=== PATIENT | female | born 1990 | race Caucasian/White ===

== ENCOUNTER → 2016-11-16 | Outpatient (CLI) | payer OTHER ==
[~2016-11-16] MED LIST: BCPILLS PO; COLE625T PO; MISC4CAP PO; MULT-506 PO; OXYM0.0592 NAE; SERT25TA PO; TRAZ50TA35 PO
[2016-11-16 17:43] LABS: BASO % 0.3 %; BASO ABS # 0.03 K/uL (0-0.2); COMPLETE YES; HEMATOCRIT 36.7 % (37-47); IG% 0.2 %; LYMPH % 15.5 %; LYMPH ABS # 1.79 K/uL (1.2-3.4); MEAN CELL VOLUME 86.6 fL (80-100); MEAN CORPUSCULAR HEMOGLOBIN 30.2 pg (25-34); MEAN CORPUSCULAR HGB CONC 34.9 g/dl (32-36); MEAN PLATELET VOLUME 9.2 fL (7.4-10.4); MONO % 9.7 %; NEUT % 73.3 %; PLATELET COUNT 328 K/uL (130-400); RED BLOOD COUNT 4.24 M/uL (4.2-5.4); WHITE BLOOD COUNT 11.55 K/uL (4.8-10.8)
[2016-11-16 18:13] LABS: ALT/SGPT 15 U/L (12-78); AST/SGOT 10 U/L (15-37); BLOOD UREA NITROGEN 8 mg/dl (7-18); CALCIUM 8.6 mg/dl (8.5-10.1); CARBON DIOXIDE 25 mmol/L (21-32); CHLORIDE 105 mmol/L (98-107); CREATININE 0.58 mg/dl (0.60-1.20); GLUCOSE 75 mg/dl (70-99); POTASSIUM 3.8 mmol/L (3.5-5.1); SODIUM 138 mmol/L (136-145)
[2016-11-16 18:15] LABS: ALB/GLOB RATIO 0.9 (0.9-2); ALKALINE PHOSPHATASE 53 U/L (45-117); C-REACTIVE PROTEIN 6.38 mg/dl (0-0.29)
== END | disposition home or self-care (01) ==
LOC: C.LAB1850 17:19
PROVIDERS: ATTEND Internal Medicine
DX: K52.9 Noninfective gastroenteritis and colitis, unspecified (principal)

== ENCOUNTER → 2016-12-27 | Day surgery (SDC) | payer OTHER ==
[2016-12-17 11:06] VITALS: Ht 167.6 cm; Wt 54.5 kg
[~2016-12-27] VITALS: Ht 167.6 cm; Wt 54.5 kg
[~2016-12-27] MED LIST changes: +LIDOCAINE HCL 2% 2 ML VIAL (20MG/ML) ONE; +MIDAZOLAM HCL 1 MG/ML 2ML VIAL ONE; +PROPOFOL IV EMULSION 10 MG/ML 20 ML VIAL IV ONE; +SODIUM CHLORIDE 0.9% 500ML 500 ML IV ONE
--- NOTE | 2016-12-27 15:01 | Endo History and Physical ---
History & Physical Date of Service: Dec 27, 2016. Chief Complaint: Chronic diarrhea Referring Physician: Dr. Young History of Present Illness 26 yo CF who presents for colonoscopy secondary to chronic diarrhea. Past Surgical History Hx Cardiac Surgery: No Hx Internal Defibrillator: No Hx Pacemaker: No Hx Abdominal Surgery: No Hx of Implantable Prosthesis: No Hx Post-Op Nausea and Vomiting: No Hx Cancer Surgery: No Hx Thoracic Surgery: No Hx Orthopedic: No Hx Urinary Tract Surgery: No Family History Polyp Social History Smoking Status: Never Smoker Hx Substance Use: No Hx Alcohol Use: No Allergies Coded Allergies: NO KNOWN DRUG ALLERGIES (Verified Allergy, Unknown, ., 12/17/16) Current Medications Reported Home Medications Medications Dose Route/Sig Max Daily Dose Days Date Category Multivitamin (Multivitamins) Tab 1 Tab PO QAM 12/17/16 Reported Align (Probiotic Product) 4 Mg Cap 1 Cap PO QAM 12/17/16 Reported Nasal Lapaz (Oxymetazoline Hcl) 0.05 % Spr 1 Lapaz PAGE HS 12/17/16 Reported Zoloft (Sertraline HCl) 25 Mg Tab 25 Mg PO QAM 12/17/16 Reported Trazodone (Trazodone HCl) 50 Mg Tab 50 Mg PO BID 12/17/16 Reported Welchol (Colesevelam HCl) 625 Mg Tab 2 Tab PO BID 12/17/16 Reported Control Pills (Miscellaneous) Tab 1 Tab PO HS 12/17/16 Reported Vital Signs Weight (Kilograms): 54.55 Height (Feet): 5 Height (Inches): 6 Physical Exam General Appearance: WD/WN, no apparent distress Respiratory/Chest: Auscultation: breath sounds normal Cardiovascular: Heart Auscultation: RRR Abdomen: Bowel Sounds: normal Inspection & Palpation: soft, non-distended, no tenderness, guarding & rebound Assessment and Plan Assessment: 26 yo CF who presents for colonoscopy secondary to chronic diarrhea. Plan: Proceed with colonoscopy.
--- NOTE | 2016-12-27 16:22 | GI REPORT ---
Procedure Date: 12/27/2016 3:24 PM Procedure: Colonoscopy Indications: Chronic diarrhea Medicines: Monitored Anesthesia Care Complications: No immediate complications. Estimated Blood Loss: Estimated blood loss: none. Procedure: Pre-Anesthesia Assessment: - Prior to the procedure, a History and Physical was performed, and patient medications and allergies were reviewed. The patient's tolerance of previous anesthesia was also reviewed. The risks and benefits of the procedure and the sedation options and risks were discussed with the patient. All questions were answered, and informed consent was obtained. Prior Anticoagulants: The patient has taken no previous anticoagulant or antiplatelet agents. ASA Grade Assessment: I - A normal, healthy patient. After reviewing the risks and benefits, the patient was deemed in satisfactory condition to undergo the procedure. After I obtained informed consent, the scope was passed under direct vision. Throughout the procedure, the patient's blood pressure, pulse, and oxygen saturations were monitored continuously. The On-site loaner was introduced through the anus and advanced to the terminal ileum. The colonoscopy was performed without difficulty. The patient tolerated the procedure well. The quality of the bowel preparation was good. The terminal ileum, ileocecal valve, appendiceal orifice, and rectum were photographed. Findings: The terminal ileum appeared normal. Biopsies were taken with a cold forceps for histology. Several random biopsies were obtained with cold forceps for histology in the entire colon. Localized moderate inflammation characterized by erosions, scarring and shallow ulcerations was found at the anus and in the rectum. Biopsies were taken with a cold forceps for histology. Fluid aspiration for cytology was performed in the entire colon. The digital rectal exam findings include anal stricture and large skin tag. Impression: - The examined portion of the ileum was normal. Biopsied. - Localized moderate inflammation was found at the anus and in the rectum secondary to proctitis. Biopsied. - Several random biopsies were obtained in the entire colon. - Fluid aspiration was performed. - Anal stricture found on digital rectal exam. Recommendation: - Resume previous diet. - Use prednisone 40 mg PO once a day for 1 week. - Await pathology results. - Repeat colonoscopy for surveillance based on pathology results. - Return to GI office as previously scheduled. Martin Claros DO 12/27/2016 4:21:39 PM This report has been signed electronically. Note Initiated On: 12/27/2016 3:24 PM I attest to the content of the Intraoperative Record and orders documented therein, exceptions below
--- NOTE | 2016-12-27 16:29 | Anesthesiology Progress Note ---
Anesthesia Post Op Note Date & Time Dec 27, 2016 at 16:30 Vital Signs Pain Intensity: 0 Vital Signs Past 12 Hours Date Time Temp Pulse Resp B/P Pulse Ox O2 Delivery O2 Flow Rate FiO2 12/27/16 16:11 92 16 94/53 98 Room Air 12/27/16 15:09 36.8 100 18 114/67 98 Room Air Notes Mental Status: alert / awake / arousable, participated in evaluation Pt Amnestic to Procedure: Yes Nausea / Vomiting: adequately controlled Pain: adequately controlled Airway Patency, RR, SpO2: stable & adequate BP & HR: stable & adequate Hydration State: stable & adequate Anesthetic Complications: no major complications apparent
[2016-12-27 16:41] VITALS: BP 101/69; PULSE 89; O2SAT 99
--- NOTE | 2016-12-27 16:53 | Discharge Instructions ---
Endoscopy Patient Instructions Date / Procedure(s) Performed Dec 27, 2016. Colonoscopy Allergy Information Coded Allergies: NO KNOWN DRUG ALLERGIES (Verified Allergy, Unknown, ., 12/17/16) Discharge Date / Findings Dec 27, 2016. Terminal ileum biopsies Random colon biopsies Proctitis with moderate disease activity and Ano-rectal biopsies Stool studies collected Medication Instructions OK to resume all medications today as prescribed Reported Home Medications Medications Dose Route/Sig Max Daily Dose Days Date Category Multivitamin (Multivitamins) Tab 1 Tab PO QAM 12/17/16 Reported Align (Probiotic Product) 4 Mg Cap 1 Cap PO QAM 12/17/16 Reported Nasal Heth (Oxymetazoline Hcl) 0.05 % Spr 1 Heth PAGE HS 12/17/16 Reported Zoloft (Sertraline HCl) 25 Mg Tab 25 Mg PO QAM 12/17/16 Reported Trazodone (Trazodone HCl) 50 Mg Tab 50 Mg PO BID 12/17/16 Reported Welchol (Colesevelam HCl) 625 Mg Tab 2 Tab PO BID 12/17/16 Reported Control Pills (Miscellaneous) Tab 1 Tab PO HS 12/17/16 Reported Provider Instructions Activity Restrictions - No exercising or heavy lifting for 24 hours. - Do not drink alcohol the day of the procedure. - Do not drive a car or operate machinery until the day after the procedure. - Do not make any important decisions or sign important papers in 24 hours after the procedure. Following Day: - Return to full activity which may include returning to work/school. Diet Start your diet with liquids and light foods (jello, soup, juice, toast). Then eat your usual diet if not nauseated. Treatment For Common After Affects For mild abdominal pain, bloating, or excessive gas: - Rest - Eat lightly - Lie on right side Recommend IBD-7 panel now Follow-Up Information Follow-up with Kayla Young as scheduled Anesthesia Information What You Should Know You have had a procedure that required some medicine to reduce anxiety and discomfort. This treatment is called moderate sedation. After receiving the treatment, you may be sleepy, but you will be able to breathe on your own. The effects of the treatment may last for several hours. Follow these instructions along with Activity/Diet recommendations noted above: * Do NOT do anything where dizziness or clumsiness would be dangerous. * Rest quietly at home today, then you can be up and about tomorrow. * Have a responsible person stay with you the rest of today. * You may have had an I.V. today. If so, you may take the dressing off later today. Recommendations Call your doctor if: * Trouble breathing * Continuous vomiting for more than 24 hours * Temperature above 101 degrees * Severe abdominal pain or bloating * Pain not relieved by pain medicine ordered * There is increased drainage or redness from any incision * A large amount of rectal bleeding greater than 2-3 tablespoons. (If you had a polyp/s removed or have hemorrhoids, a small amount of blood - from the rectum is to be expected.) * You have any unanswered questions or concerns. IN THE EVENT OF A SERIOUS EMERGENCY, GO TO THE NEAREST EMERGENCY ROOM Your discharge instructions were prepared by provider Martin Claros. Patient Instructions Signature Page Azul Patterson Patient (or Guardian) Signature/Date: I have read and understand the instructions given to me by my caregivers. Caregiver/RN/Doctor Signature/Date: The above-named patient and/or guardian has received patient instructions on this date. + Original Patient Signature Page (only) stays with chart. Please make copy for patient.
== END | disposition home or self-care (01) ==
LOC: C.GI 14:49
PROVIDERS: ATTEND Internal Medicine
DX: K52.9 Noninfective gastroenteritis and colitis, unspecified (principal); K62.89 Other specified diseases of anus and rectum; K62.4 Stenosis of anus and rectum; Z79.3 Long term (current) use of hormonal contraceptives; Z68.1 Body mass index [BMI] 19.9 or less, adult; Z83.71 Family history of colonic polyps

== ENCOUNTER → 2017-01-07 | Outpatient (CLI) | payer OTHER ==
[~2017-01-07] MED LIST changes: -LIDOCAINE HCL 2% 2 ML VIAL (20MG/ML) ONE; -MIDAZOLAM HCL 1 MG/ML 2ML VIAL ONE; -PROPOFOL IV EMULSION 10 MG/ML 20 ML VIAL IV ONE; -SODIUM CHLORIDE 0.9% 500ML 500 ML IV ONE
== END | disposition home or self-care (01) ==
LOC: C.LAB 15:31
PROVIDERS: ATTEND Internal Medicine
DX: K62.89 Other specified diseases of anus and rectum (principal)

== ENCOUNTER → 2017-01-26 | Outpatient (CLI) | payer OTHER ==
[~2017-01-26] MED LIST changes: +GADAVIST IV PRN
--- NOTE | 2017-01-27 08:40 | DIAGNOSTIC IMAGING REPORT ---
MRI ENTEROGRAPHY OF THE ABDOMEN AND PELVIS WITH AND WITHOUT CONTRAST CLINICAL HISTORY: Crohn's disease. COMPARISON STUDY: No previous studies for comparison. TECHNIQUE: The patient ingested Volumen. Utilizing 1.5 Kelli magnet and dedicated coil, multiplanar, multi echo imaging of the abdomen and pelvis was performed pre and postcontrast administration. Post contrast imaging was performed utilizing dynamic enhancement. Injection of 5.5 cc of Gadavist IV was uneventful. 1 mg of glucagon was administered IM at 12:00 PM. FINDINGS: The caliber and wall thickness of the jejunum and ileum are normal. No bowel wall thickening is noted. There is no evidence for a bowel obstruction. There is no evidence of bowel wall hyperemia. No fistula or abscess is identified. The terminal ileum is partially obscured on this exam but is likely normal. There is no ascites. The liver, spleen, adrenal glands and kidneys are unremarkable. There is slight prominence of the right renal collecting system without hydronephrosis. Visualized skeletal structures are unremarkable. IMPRESSION: Normal MRI enterography. No bowel wall thickening, bowel obstruction, abscess or fistula. Electronically signed by: Yosvany Benavides M.D. 01/27/2017 8:39 AM Dictated Date/Time: 01/26/2017 1:08 PM
== END | disposition home or self-care (01) ==
LOC: C.MRI 10:36
PROVIDERS: ATTEND Registered Nurse
DX: K50.10 Crohn's disease of large intestine without complications (principal)

== ENCOUNTER → 2017-01-31 | Outpatient (CLI) | payer OTHER ==
[~2017-01-31] MED LIST changes: -GADAVIST IV PRN
[2017-01-31 17:23] LABS: BASO % 0.1 %; BASO ABS # 0.01 K/uL (0-0.2); COMPLETE YES; HEMATOCRIT 42.3 % (37-47); IG% 0.6 %; LYMPH ABS # 1.12 K/uL (1.2-3.4); MEAN CELL VOLUME 89.6 fL (80-100); MEAN CORPUSCULAR HEMOGLOBIN 29.7 pg (25-34); MEAN CORPUSCULAR HGB CONC 33.1 g/dl (32-36); MEAN PLATELET VOLUME 9.1 fL (7.4-10.4); MONO % 1.4 %; NEUT % 90.9 %; PLATELET COUNT 361 K/uL (130-400); RED BLOOD COUNT 4.72 M/uL (4.2-5.4); WHITE BLOOD COUNT 15.96 K/uL (4.8-10.8)
[2017-01-31 18:04] LABS: ALKALINE PHOSPHATASE 55 U/L (45-117); ALT/SGPT 20 U/L (12-78); AST/SGOT 7 U/L (15-37); BLOOD UREA NITROGEN 15 mg/dl (7-18); BUN/CREATININE RATIO 19.5 (10-20); CALCIUM 9.4 mg/dl (8.5-10.1); CARBON DIOXIDE 26 mmol/L (21-32); CHLORIDE 102 mmol/L (98-107); CREATININE 0.77 mg/dl (0.60-1.20); GLUCOSE 122 mg/dl (70-99); POTASSIUM 3.6 mmol/L (3.5-5.1); SODIUM 136 mmol/L (136-145)
[2017-01-31 18:06] LABS: C-REACTIVE PROTEIN 0.32 mg/dl (0-0.29)
[2017-01-31 18:35] LABS: HEPATITIS B AB NEG
[2017-02-02 12:26] LABS: QUANTIF TB AG-NIL <0.00 IU/ML; QUANTIFERON NIL 0.14 IU/ML
== END | disposition home or self-care (01) ==
LOC: C.LAB1850 16:17
PROVIDERS: ATTEND Registered Nurse
DX: K50.10 Crohn's disease of large intestine without complications (principal)

== ENCOUNTER → 2017-10-20 | Outpatient (CLI) | payer OTHER ==
[2017-10-20 16:38] LABS: BASO % 0.2 %; BASO ABS # 0.03 K/uL (0-0.2); EOS % 1.2 %; EOS ABS # 0.15 K/uL (0-0.5); HEMATOCRIT 41.3 % (37-47); HEMOGLOBIN 14.8 g/dL (12.0-16.0); IG# 0.02 K/uL (0.00-0.02); LYMPH % 19.4 %; LYMPH ABS # 2.42 K/uL (1.2-3.4); MEAN CORPUSCULAR HEMOGLOBIN 32.2 pg (25-34); MEAN CORPUSCULAR HGB CONC 35.8 g/dl (32-36); MEAN PLATELET VOLUME 9.4 fL (7.4-10.4); MONO % 5.6 %; NEUT % 73.4 %; NEUT ABS # 9.18 K/uL (1.4-6.5); PLATELET COUNT 342 K/uL (130-400); RED CELL DISTRIBUTION WIDTH SD 39.2 fL (36.4-46.3)
[2017-10-20 17:00] LABS: ALBUMIN 3.8 gm/dl (3.4-5.0); ALT/SGPT 17 U/L (12-78); AST/SGOT 9 U/L (15-37); BLOOD UREA NITROGEN 15 mg/dl (7-18); CALCIUM 9.3 mg/dl (8.5-10.1); CARBON DIOXIDE 24 mmol/L (21-32); CREATININE 0.56 mg/dl (0.60-1.20); GLUCOSE 77 mg/dl (70-99); POTASSIUM 3.5 mmol/L (3.5-5.1); SODIUM 136 mmol/L (136-145)
[2017-10-20 17:02] LABS: ALKALINE PHOSPHATASE 43 U/L (45-117); TOTAL PROTEIN 8.3 gm/dl (6.4-8.2)
== END | disposition home or self-care (01) ==
LOC: C.LAB1850 15:42
PROVIDERS: ATTEND Internal Medicine
DX: K50.10 Crohn's disease of large intestine without complications (principal)

== ENCOUNTER → 2018-05-05 | Outpatient (CLI) | payer OTHER ==
[2018-05-05 16:41] LABS: BASO % 0.4 %; BASO ABS # 0.04 K/uL (0-0.2); EOS % 1.5 %; EOS ABS # 0.16 K/uL (0-0.5); HEMATOCRIT 38.6 % (37-47); HEMOGLOBIN 13.3 g/dL (12.0-16.0); IG# 0.03 K/uL (0.00-0.02); LYMPH % 21.2 %; LYMPH ABS # 2.26 K/uL (1.2-3.4); MEAN CELL VOLUME 90.2 fL (80-100); MEAN CORPUSCULAR HEMOGLOBIN 31.1 pg (25-34); MEAN CORPUSCULAR HGB CONC 34.5 g/dl (32-36); MEAN PLATELET VOLUME 9.9 fL (7.4-10.4); MONO % 6.6 %; NEUT ABS # 7.49 K/uL (1.4-6.5); PLATELET COUNT 310 K/uL (130-400); RED CELL DISTRIBUTION WIDTH CV 12.2 % (11.5-14.5); RED CELL DISTRIBUTION WIDTH SD 39.8 fL (36.4-46.3); WHITE BLOOD COUNT 10.68 K/uL (4.8-10.8)
[2018-05-05 17:05] LABS: ALBUMIN 3.3 gm/dl (3.4-5.0); ALKALINE PHOSPHATASE 46 U/L (45-117); ALT/SGPT 16 U/L (12-78); AST/SGOT 10 U/L (15-37); BLOOD UREA NITROGEN 10 mg/dl (7-18); CALCIUM 8.3 mg/dl (8.5-10.1); CARBON DIOXIDE 21 mmol/L (21-32); CREATININE 0.69 mg/dl (0.60-1.20); GLUCOSE 100 mg/dl (70-99); POTASSIUM 3.5 mmol/L (3.5-5.1); SODIUM 137 mmol/L (136-145)
== END | disposition home or self-care (01) ==
LOC: C.LABPBG 15:27
PROVIDERS: ATTEND Internal Medicine
DX: R19.7 Diarrhea, unspecified (principal)

== ENCOUNTER → 2018-05-06 | Outpatient (CLI) | payer OTHER | END | disposition home or self-care (01) | LOC: C.LAB 18:46 | PROVIDERS: ATTEND Internal Medicine | DX: R19.7 Diarrhea, unspecified (principal) ==

== ENCOUNTER → 2018-05-19 | Outpatient (CLI) | payer OTHER ==
[~2018-05-19] MED LIST changes: +ATEN-173 PO; +DOXY100C76 PO; +FLUT0.15 INTNAS; +RMCI INJ
--- NOTE | 2018-05-19 18:49 | DIAGNOSTIC IMAGING REPORT ---
SI JOINTS 3 OR MORE VIEWS CLINICAL HISTORY: Crohn's disease. Back spasms. COMPARISON STUDY: No previous studies for comparison. FINDINGS: Sacroiliac joints are intact without evidence for ankylosis. No definite erosions are identified. No fracture or osseous lesion is noted. IMPRESSION: No convincing radiographic evidence of sacroiliitis. Electronically signed by: Yosvany Benavides M.D. 05/19/2018 6:48 PM Dictated Date/Time: 05/19/2018 6:46 PM
== END | disposition home or self-care (01) ==
LOC: C.RAD 18:25
PROVIDERS: ATTEND Internal Medicine
DX: K50.10 Crohn's disease of large intestine without complications (principal)

== ENCOUNTER → 2018-05-23 | Day surgery (SDC) | payer OTHER ==
[~2018-05-23] VITALS: Ht 167.6 cm; Wt 56.4 kg
[~2018-05-23] MED LIST changes: +LIDOCAINE HCL 2% 2 ML VIAL (20MG/ML) ONE; +MIDAZOLAM HCL 1 MG/ML 2ML VIAL ONE; +PROPOFOL IV EMULSION 10 MG/ML 20 ML VIAL ONE; +SODIUM CHLORIDE 0.9% 500ML 500 ML IV ONE
[2018-05-23 09:50] VITALS: Ht 167.6 cm; Wt 56.4 kg
--- NOTE | 2018-05-23 10:03 | Endo History and Physical ---
History & Physical Date of Service: May 23, 2018. Chief Complaint: CROHNS Referring Physician: DR. CARTAGENA History of Present Illness 27 yo CF who presents for colonoscopy secondary to Crohn's Disease. Past Surgical History Hx Cardiac Surgery: No Hx Internal Defibrillator: No Hx Pacemaker: No Hx Abdominal Surgery: No Hx of Implantable Prosthesis: No Hx Post-Op Nausea and Vomiting: No Hx Cancer Surgery: No Hx Thoracic Surgery: No Hx Orthopedic: No Hx Urinary Tract Surgery: No Family History Polyp Social History Smoking Status: Never Smoker Hx Substance Use: No Hx Alcohol Use: Yes (OCC SOCIAL) Allergies Coded Allergies: NO KNOWN DRUG ALLERGIES (Verified Allergy, Unknown, NONE, 05/23/18) Current Medications Reported Home Medications Medications Dose Route/Sig Max Daily Dose Days Date Category Dose Instructions Tenormin (Atenolol) 25 Mg Tab 25 Mg PO PRN 05/19/18 Reported Remicade (Infliximab) 100 Mg/10 Ml Inj 1 Dose INJ Q5-6WEEKS 05/19/18 Reported LAST DOSE 05/01/18 Monodox (Doxycycline Monohydrate) 100 Mg Cap 100 Mg PO PRN 05/19/18 Reported Flonase Allergy Relief (Fluticasone Propionate (Nasal)) 50 Mcg/Act Spr 2 Sprays INTNAS HS 05/19/18 Reported Multivitamin (Multivitamins) Tab 1 Tab PO QAM 12/17/16 Reported Zoloft (Sertraline HCl) 25 Mg Tab 25 Mg PO QAM 12/17/16 Reported Trazodone (Trazodone HCl) 50 Mg Tab 50 Mg PO QPM 12/17/16 Reported Control Pills (Miscellaneous) Tab 1 Tab PO HS 12/17/16 Reported Vital Signs Weight (Kilograms): 56.36 Height (Feet): 5 Height (Inches): 6 Physical Exam General Appearance: WD/WN, no apparent distress Respiratory/Chest: Auscultation: breath sounds normal Cardiovascular: Heart Auscultation: RRR Abdomen: Bowel Sounds: normal Inspection & Palpation: soft, non-distended, no tenderness, guarding & rebound Assessment and Plan Assessment: 27 yo CF who presents for colonoscopy secondary to Crohn's Disease. Plan: Proceed with colonoscopy.
--- NOTE | 2018-05-23 10:38 | Discharge Instructions ---
Endoscopy Patient Instructions Date / Procedure(s) Performed May 23, 2018. Colonoscopy Allergy Information Coded Allergies: NO KNOWN DRUG ALLERGIES (Verified Allergy, Unknown, NONE, 05/23/18) Discharge Date / Findings May 23, 2018. Biopsies of the terminal ileum Random biopsies of the colon Stool aspirate collected Mild disease activity in the rectum Medication Instructions OK to resume all medications today as prescribed Reported Home Medications Medications Dose Route/Sig Max Daily Dose Days Date Category Dose Instructions Tenormin (Atenolol) 25 Mg Tab 25 Mg PO PRN 05/19/18 Reported Remicade (Infliximab) 100 Mg/10 Ml Inj 1 Dose INJ Q5-6WEEKS 05/19/18 Reported LAST DOSE 05/01/18 Monodox (Doxycycline Monohydrate) 100 Mg Cap 100 Mg PO PRN 05/19/18 Reported Flonase Allergy Relief (Fluticasone Propionate (Nasal)) 50 Mcg/Act Spr 2 Sprays INTNAS HS 05/19/18 Reported Multivitamin (Multivitamins) Tab 1 Tab PO QAM 12/17/16 Reported Zoloft (Sertraline HCl) 25 Mg Tab 25 Mg PO QAM 12/17/16 Reported Trazodone (Trazodone HCl) 50 Mg Tab 50 Mg PO QPM 12/17/16 Reported Control Pills (Miscellaneous) Tab 1 Tab PO HS 12/17/16 Reported Provider Instructions Activity Restrictions - No exercising or heavy lifting for 24 hours. - Do not drink alcohol the day of the procedure. - Do not drive a car or operate machinery until the day after the procedure. - Do not make any important decisions or sign important papers in 24 hours after the procedure. Following Day: - Return to full activity which may include returning to work/school. Diet Start your diet with liquids and light foods (jello, soup, juice, toast). Then eat your usual diet if not nauseated. Treatment For Common After Affects For mild abdominal pain, bloating, or excessive gas: - Rest - Eat lightly - Lie on right side Follow-Up Information Follow-up with DR. CARTAGENA as scheduled Anesthesia Information What You Should Know You have had a procedure that required some medicine to reduce anxiety and discomfort. This treatment is called moderate sedation. After receiving the treatment, you may be sleepy, but you will be able to breathe on your own. The effects of the treatment may last for several hours. Follow these instructions along with Activity/Diet recommendations noted above: * Do NOT do anything where dizziness or clumsiness would be dangerous. * Rest quietly at home today, then you can be up and about tomorrow. * Have a responsible person stay with you the rest of today. * You may have had an I.V. today. If so, you may take the dressing off later today. Recommendations Call your doctor if: * Trouble breathing * Continuous vomiting for more than 24 hours * Temperature above 101 degrees * Severe abdominal pain or bloating * Pain not relieved by pain medicine ordered * There is increased drainage or redness from any incision * A large amount of rectal bleeding greater than 2-3 tablespoons. (If you had a polyp/s removed or have hemorrhoids, a small amount of blood - from the rectum is to be expected.) * You have any unanswered questions or concerns. IN THE EVENT OF A SERIOUS EMERGENCY, GO TO THE NEAREST EMERGENCY ROOM Your discharge instructions were prepared by provider Martin Claros. Patient Instructions Signature Page Azul Patterson Patient (or Guardian) Signature/Date: I have read and understand the instructions given to me by my caregivers. Caregiver/RN/Doctor Signature/Date: The above-named patient and/or guardian has received patient instructions on this date. + Original Patient Signature Page (only) stays with chart. Please make copy for patient.
--- NOTE | 2018-05-23 10:44 | GI REPORT ---
Patient Name: Azul Patterson Procedure Date: 05/23/2018 9:41 AM Date of : 1990 Admit Type: Outpatient Age: 27 Gender: Female Attending MD: Martin Claros DO Procedure: Colonoscopy Providers: Martin Claros DO Referring MD: Martin Claros DO Indications: Disease activity assessment of Crohn's disease of the colon Medicines: Monitored Anesthesia Care Complications: No immediate complications. Estimated Blood Loss: Estimated blood loss: none. Procedure: Pre-Anesthesia Assessment: - Prior to the procedure, a History and Physical was performed, and patient medications and allergies were reviewed. The patient's tolerance of previous anesthesia was also reviewed. The risks and benefits of the procedure and the sedation options and risks were discussed with the patient. All questions were answered, and informed consent was obtained. Prior Anticoagulants: The patient has taken no previous anticoagulant or antiplatelet agents. ASA Grade Assessment: II - A patient with mild systemic disease. After reviewing the risks and benefits, the patient was deemed in satisfactory condition to undergo the procedure. After I obtained informed consent, the scope was passed under direct vision. Throughout the procedure, the patient's blood pressure, pulse, and oxygen saturations were monitored continuously. The scope was introduced through the anus and advanced to the terminal ileum. The colonoscopy was performed without difficulty. The patient tolerated the procedure well. The quality of the bowel preparation was good. The appendiceal orifice and the rectum were photographed. Findings: Skin tags were found on perianal exam. A localized area of mildly erythematous and inflamed mucosa was found in the distal rectum. The terminal ileum appeared normal. Biopsies were taken with a cold forceps for histology. Multiple random biopsies were obtained with cold forceps for histology in the entire colon. Fluid aspiration for stool studies was performed in the entire colon. Impression: - Perianal skin tags found on perianal exam. - Erythematous and inflamed mucosa in the distal rectum. - The examined portion of the ileum was normal. Biopsied. - Multiple random biopsies were obtained in the entire colon. - Fluid aspiration was performed. Recommendation: - Resume previous diet. - Continue present medications. - Repeat colonoscopy for surveillance based on pathology results. - Return to primary care physician as previously scheduled. Martin Claros DO 05/23/2018 10:43:40 AM This report has been signed electronically. Note Initiated On: 05/23/2018 9:41 AM Number of Addenda: 0 I attest to the content of the Intraoperative Record and orders documented therein, exceptions below {[id number]}
[2018-05-23 11:09] VITALS: BP 105/70; PULSE 65; O2SAT 99
--- NOTE | 2018-05-23 11:16 | Anesthesiology Progress Note ---
Anesthesia Post Op Note Date & Time May 23, 2018 at 11:16 Vital Signs Pain Intensity: 0 Vital Signs Past 12 Hours Date Time Temp Pulse Resp B/P (MAP) Pulse Ox O2 Delivery O2 Flow Rate FiO2 05/23/18 11:09 65 18 105/70 (82) 99 Room Air 05/23/18 10:54 71 18 100/68 (79) 97 Room Air 05/23/18 10:39 36.7 73 16 91/53 (66) 99 Room Air 05/23/18 09:59 37.2 71 18 109/74 (86) 100 Room Air Notes Mental Status: alert / awake / arousable, participated in evaluation Pt Amnestic to Procedure: Yes Nausea / Vomiting: adequately controlled Pain: adequately controlled Airway Patency, RR, SpO2: stable & adequate BP & HR: stable & adequate Hydration State: stable & adequate Anesthetic Complications: no major complications apparent
== END | disposition home or self-care (01) ==
LOC: C.GI 09:27
PROVIDERS: ATTEND Internal Medicine
DX: K50.90 Crohn's disease, unspecified, without complications (principal); Z83.71 Family history of colonic polyps; K64.4 Residual hemorrhoidal skin tags; F41.9 Anxiety disorder, unspecified; F32.9 Major depressive disorder, single episode, unspecified; Z79.3 Long term (current) use of hormonal contraceptives